=== PATIENT | female | born 1965 | race Caucasian/White ===

== ENCOUNTER 2019-06-14 14:48 | Inpatient (IN) ==
[2019-06-14] MEDS ORDERED: IOPAMIDOL 100 ML BOTTLE IV ONE (14:49)
[2019-06-14] MEDS ORDERED: IPRATROPIUM/ALBUTEROL 3 ML AMPUL.NEB NEB ONE (15:15)
[2019-06-14 15:33] LABS: Basophils # (Auto) 0.1 K/mcL (0.0-0.3); Basophils % (Auto) 0.7 % (0.0-2.0); Eosinophils # (Auto) 0.1 K/mcL (0.0-0.7); Eosinophils % (Auto) 1.2 % (0.0-7.0); Granulocytes % (Auto) 73.9 % (38.0-78.0); Hematocrit 39.1 % (36.0-48.0); Hemoglobin 12.8 g/dL (12.0-15.0); Lymphocytes # (Auto) 1.6 K/mcL (1.5-4.8); Lymphocytes % (Auto) 17.5 % (15.5-49.0); Mean Cell Volume 77.8 fL (80.0-100.0); Mean Corpuscular HGB Conc 32.8 g/dL (31.0-36.0); Mean Platelet Volume 7.7 fL (7.4-10.4); Monocytes # (Auto) 0.6 K/mcL (0.1-0.9); Monocytes % (Auto) 6.7 % (1.0-12.0); Platelet Count 461 K/mcL (140-440); RBC 5.02 M/mcL (4.00-5.20); Red Cell Distribution Width 16.4 % (11.5-14.5); WBC 8.9 K/mcL (4.5-11.0)
[2019-06-14 16:05] LABS: ALT/SGPT 9 U/l (0-40); AST/SGOT 12 U/l (0-37); Albumin 3.4 gm/dL (3.2-5.2); Albumin/Globulin Ratio 0.9 (1.0-2.3); Alkaline Phosphatase 124 U/L (39-117); Bilirubin,Total 0.2 mg/dL (0.0-1.0); Blood Urea Nitrogen 8 mg/dl (6-20); Calcium 9.3 mg/dl (8.6-10.4); Carbon Dioxide 30 mmol/L (22-30); Chloride 92 mmol/L (96-108); Glomerular Filtration Rate 116; Glucose 118 mg/dL (70-105); proBNP 207.6 pg/ml (0-125)
--- NOTE | 2019-06-14 16:29 | XRay Report ---
HISTORY: Short of breath FINDINGS: There is near complete opacification of the right thorax due to large pleural effusion and complete atelectasis of the right middle and lower lobe and partial right upper lobe atelectasis. Left lung is clear. Heart does not appear to be grossly enlarged. No Left-sided effusion is present. Comparison with the prior exam from 04/08/19 shows the right-sided effusion and atelectasis are new. IMPRESSION: Large right-sided pleural effusion with complete atelectasis of the right middle and right lower lobe Interpreted and Authenticated by: Castillo Gordillo 06/14/19
[2019-06-14 16:32] LABS: Appearance,Urine CLEAR; Bacteria,Urine MANY /hpf (0); Bilirubin,Urine NEG (NEG); Color,Urine YELLOW; Culture Indicated,Urine YES; Glucose,Urine (UA) NEGATIVE (NEG); Ketones,Urine 20 mg/dL (NEG); Leukocyte Esterase,Urine 75 /uL (NEG); Mucus,Urine FEW /hpf (0); Nitrate,Urine POS (NEG); Protein,Urine NEG (NEG); Urine Blood 0.2 mg/dL (<0.03); Urine RBC 2 /hpf (0-1); Urine Squamous Epithelial Cell 1 /hpf (0-4); Urine WBC 7 /hpf (0-4); Urobilinogen,Urine NEG (NEG)
--- NOTE | 2019-06-14 18:09 | Ultrasound Report ---
CLINICAL INFORMATION: Right-sided pleural effusion with dyspnea TECHNIQUE: The procedure and risks were explained and the patient consented. Large volume of pleural fluid was localized in the right thorax. The skin over the right side of the back was prepped with ChloraPrep and then anesthetized with 1% lidocaine. Using ultrasound guidance a multi-sidehole drainage catheter was inserted into the pleural space. 1 L of dark old bloody fluid was removed and sent to laboratory for analysis. There is still a moderate amount of residual fluid. The patient began coughing and the procedure was terminated. Coughing subsided and she tolerated the procedure well without complication. IMPRESSION: Successful right-sided thoracentesis removing 1 L of dark bloody fluid Interpreted and Authenticated by: Castillo Gordillo 06/14/19
--- NOTE | 2019-06-14 18:10 | XRay Report ---
HISTORY: Post right-sided thoracentesis FINDINGS: There is partial reexpansion of the right upper lobe following the preceding thoracentesis. In spite of removing 1 L of fluid, there is still a large amount of residual pleural fluid present causing complete atelectasis of the right middle and lower lobe. There is no pneumothorax or mediastinal shift. Left lung remains clear. IMPRESSION: No complication following right-sided thoracentesis Interpreted and Authenticated by: Castillo Gordillo 06/14/19
--- NOTE | 2019-06-14 18:34 | Emergency Department Note ---
SOB HPI - General Chief Complaint: Shortness of Breath/Dyspnea Stated Complaint: SOB Time Seen by Provider: 06/14/19 14:59 Source: patient Mode of arrival: wheelchair Limitations: no limitations - History of Present Illness 54-year-old female presents with increasing shortness of breath. States this is been going on over a month. They put her on oxygen and she is in a [facility] but she states she continues to get worse and feels more short of breath today than she has even over the last few weeks. No fever chills. No nausea, vomiting, or diarrhea. - Related Data Home Medications Medication Instructions Recorded Confirmed Aspirin [Lite Coat Aspirin] 325 mg PO DAILY 09/17/16 05/14/19 Acetaminophen 325 mg PO PRN PRN 04/25/19 05/14/19 Atorvastatin [Lipitor] 20 mg PO HS 04/25/19 05/14/19 Cadexomer Iodine [Iodosorb] 1 gm TOPICAL DAILY 04/25/19 05/14/19 daptomycin 350 mg intravenous 220 mg IV Q24H each 05/13/19 05/13/19 solution meropenem 500 mg intravenous 1 g IV Q8H 05/13/19 05/13/19 solution varenicline 0.5 mg tablet 0.5 mg PO BID 05/13/19 05/13/19 Previous Rx's Medication Instructions Recorded budesonide-formoterol HFA 80 2 puff INHALATION BID #10.2 g 06/23/18 mcg-4.5 mcg/actuation aerosol inhaler fluticasone propionate 50 1 spray INTRANASAL BID #16 g 09/02/18 mcg/actuation nasal spray,suspension lisinopril 20 mg tablet 20 mg PO QDAY #90 tab 10/19/18 mirabegron 25 mg tablet,extended 25 mg PO QDAY #30 tab 11/17/18 release 24 hr [employer] Knee Scooter #1 each 02/02/19 oxycodone 5 mg tablet 5 mg PO Q4H PRN #90 tab 04/27/19 duloxetine 30 mg capsule,delayed 30 mg PO QDAY #30 cap 05/11/19 release duloxetine 60 mg capsule,delayed 60 mg PO QDAY #30 cap 05/11/19 release pregabalin 200 mg capsule 200 mg PO TID #90 cap 05/12/19 D/C PICC line in L arm #1 ea 05/13/19 trazodone 50 mg tablet 50 mg PO QHS #60 tab 05/20/19 fentanyl 25 mcg/hr transdermal 1 patch TRANSDERMA Q72H #5 each 05/25/19 patch Allergies Allergy/AdvReac Type Severity Reaction Status Date / Time morphine AdvReac Mild Agitated Verified 06/14/19 14:52 Review of Systems All systems ED: reviewed and negative except as stated. Past Medical History - Past Medical History [facility] Narrative: Medical History (Last Reviewed 05/14/19 @ 10:23 by Orly Avalos LPN) Abnormal complete blood count (Chronic) Major depressive disorder, recurrent severe without psychotic features (Chronic) Overweight (BMI 25.0-29.9) (Chronic) Chronic nausea (Chronic) History of kidney stones (Chronic) Anxiety with depression (Chronic) Tobacco abuse (Chronic) PAD (peripheral artery disease) (Chronic ~2009) COPD (chronic obstructive pulmonary disease) (Chronic) Joint pain (Chronic) Insomnia (Chronic) Hyperlipidemia (Chronic) Hypertension, essential (Chronic) Arthritis (Chronic) Acute bacterial rhinosinusitis (Resolved) Atherosclerosis of extremity with gangrene (Resolved) Atherosclerosis of [place] artery of right leg with gangrene (Resolved) Chronic ulcer of great toe of right foot (Resolved) Daytime sleepiness (Resolved) Foot ulcer, right (Resolved) Osteomyelitis (Resolved) Skin ulcer of foot including toes (Resolved) Urinary tract infection (Resolved) Past Surgical History (Last Reviewed 05/14/19 @ 10:23 by Orly Avalos LPN) H/O angioplasty (Chronic) H/O colonoscopy (Chronic) H/O: hysterectomy (Chronic) History of amputation of hallux (Chronic 02/21/19) History of ankle surgery (Chronic) History of cataract surgery (Chronic) Hx of AKA (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 Absent: conjunctival injection ENT: Present: normal exam, normal oropharynx, mucous membranes moist, TM's normal bilaterally, normal external ear exam Chest: Present: symmetric chest wall rise Respiratory: Present: respiratory distress (mild tachypnea on arrival and mild labored breathing), other (dimished throughout) Cardiovascular: Present: regular rate, normal heart sounds Extremities: Present: other (left aka). Absent: normal inspection (Right axqaw-hvm-rljf amputation.) Neurological: Present: oriented X3 Psychiatric: Present: normal affect, normal mood Skin: Present: warm, dry, intact, normal color. Absent: rash, hives, cyanosis, diaphoresis Course Course Narrative: @[address] Khan who agrees to accept this patient Vital Signs Temperature 98.6 F 06/14/19 14:48 Pulse Rate 105 H 06/14/19 14:48 Respiratory Rate 23 H 06/14/19 14:48 Blood Pressure 165/78 06/14/19 14:48 Pulse Oximetry (%) 91 06/14/19 14:48 Temperature 98.6 F 06/14/19 14:48 Pulse Rate 103 H 06/14/19 19:46 Respiratory Rate 20 06/14/19 18:46 Blood Pressure 146/81 06/14/19 19:46 Pulse Oximetry (%) 90 06/14/19 19:46 Shortness of Breath/Dyspnea - Lab Data Result diagrams: 06/14/19 15:07 06/14/19 15:07 Lab Results 06/14/19 06/14/19 06/14/19 Range/Units 15:00 15:07 15:07 WBC 8.9 (4.5-11.0) K/mcL RBC 5.02 (4.00-5.20) M/mcL Hgb 12.8 (12.0-15.0) g/dL Hct 39.1 (36.0-48.0) % MCV 77.8 L (80.0-100.0) fL MCH 25.5 L (26.0-34.0) pg MCHC 32.8 (31.0-36.0) g/dL RDW 16.4 H (11.5-14.5) % Plt Count 461 H (140-440) K/mcL MPV 7.7 (7.4-10.4) fL Gran % 73.9 (38.0-78.0) % Lymph % (Auto) 17.5 (15.5-49.0) % [place] % (Auto) 6.7 (1.0-12.0) % Eos % (Auto) 1.2 (0.0-7.0) % Baso % (Auto) 0.7 (0.0-2.0) % Gran # 6.6 (1.8-8.0) K/mcL Lymph # (Auto) 1.6 (1.5-4.8) K/mcL [place] # (Auto) 0.6 (0.1-0.9) K/mcL Eos # (Auto) 0.1 (0.0-0.7) K/mcL Baso # (Auto) 0.1 (0.0-0.3) K/mcL VBG Lactic Acid (0.5-2.0) mmol/L Sodium 134 (133-145) mmol/L Potassium 4.0 (3.3-5.1) mmol/L Chloride 92 L (96-108) mmol/L Carbon Dioxide 30 (22-30) mmol/L Anion Gap 12.0 (8-16) BUN 8 (6-20) mg/dl Creatinine 0.4 L (0.6-1.1) mg/dl GFR Calculation 116 Glucose 118 H (70-105) mg/dL Calcium 9.3 (8.6-10.4) mg/dl Total Bilirubin 0.2 (0.0-1.0) mg/dL AST 12 (0-37) U/l ALT 9 (0-40) U/l Alkaline Phosphatase 124 H (39-117) U/L Troponin T < 0.01 (0-0.03) ng/ml NT-Pro-B Natriuret Pep 207.6 H (0-125) pg/ml Total Protein 7.4 (5.9-8.4) gm/dL Albumin 3.4 (3.2-5.2) gm/dL Globulin 4.0 H (2.2-3.7) gm/dL Albumin/Globulin Ratio 0.9 L (1.0-2.3) Urine Color Urine Appearance Urine pH (5.0-9.0) Ur Specific [place] (1.000-1.035) Urine Protein (NEG) mg/dL Urine Glucose (UA) (NEG) mg/dL Urine Ketones (NEG) mg/dL Urine Occult Blood (<0.03) mg/dL Urine Nitrate (NEG) Urine Bilirubin (NEG) mg/dL Urine Urobilinogen (NEG) mg/dL Ur Leukocyte Esterase (NEG) /uL Urine RBC (0-1) /hpf Urine WBC (0-4) /hpf Ur Squamous Epith Cells (0-4) /hpf Urine Bacteria (0) /hpf Urine Mucus (0) /hpf Ur Culture Indicated? 06/14/19 06/14/19 Range/Units 15:07 15:35 WBC (4.5-11.0) K/mcL RBC (4.00-5.20) M/mcL Hgb (12.0-15.0) g/dL Hct (36.0-48.0) % MCV (80.0-100.0) fL MCH (26.0-34.0) pg MCHC (31.0-36.0) g/dL RDW (11.5-14.5) % Plt Count (140-440) K/mcL MPV (7.4-10.4) fL Gran % (38.0-78.0) % Lymph % (Auto) (15.5-49.0) % [place] % (Auto) (1.0-12.0) % Eos % (Auto) (0.0-7.0) % Baso % (Auto) (0.0-2.0) % Gran # (1.8-8.0) K/mcL Lymph # (Auto) (1.5-4.8) K/mcL [place] # (Auto) (0.1-0.9) K/mcL Eos # (Auto) (0.0-0.7) K/mcL Baso # (Auto) (0.0-0.3) K/mcL VBG Lactic Acid 1.0 (0.5-2.0) mmol/L Sodium (133-145) mmol/L Potassium (3.3-5.1) mmol/L Chloride (96-108) mmol/L Carbon Dioxide (22-30) mmol/L Anion Gap (8-16) BUN (6-20) mg/dl Creatinine (0.6-1.1) mg/dl GFR Calculation Glucose (70-105) mg/dL Calcium (8.6-10.4) mg/dl Total Bilirubin (0.0-1.0) mg/dL AST (0-37) U/l ALT (0-40) U/l Alkaline Phosphatase (39-117) U/L Troponin T (0-0.03) ng/ml NT-Pro-B Natriuret Pep (0-125) pg/ml Total Protein (5.9-8.4) gm/dL Albumin (3.2-5.2) gm/dL Globulin (2.2-3.7) gm/dL Albumin/Globulin Ratio (1.0-2.3) Urine Color Yellow Urine Appearance Clear Urine pH 7.0 (5.0-9.0) Ur Specific [place] 1.010 (1.000-1.035) Urine Protein Neg (NEG) mg/dL Urine Glucose (UA) Negative (NEG) mg/dL Urine Ketones 20 A (NEG) mg/dL Urine Occult Blood 0.2 A (<0.03) mg/dL Urine Nitrate Pos A (NEG) Urine Bilirubin Neg (NEG) mg/dL Urine Urobilinogen Neg (NEG) mg/dL Ur Leukocyte Esterase 75 A (NEG) /uL Urine RBC 2 H (0-1) /hpf Urine WBC 7 H (0-4) /hpf Ur Squamous Epith Cells 1 (0-4) /hpf Urine Bacteria Many A (0) /hpf Urine Mucus Few (0) /hpf Ur Culture Indicated? Yes Disposition Pt seen by HISTORY PROFESSOR/PA only: Yes Clinical Impression: UTI (urinary tract infection), Dyspnea, Status post thoracentesis, Hypoxia Disposition: Xfer As Inpt ([facility]) Condition: Fair Referrals: Vickie Marroquin ARNP [Primary Care Provider] - Time of Disposition: 19:55
--- NOTE | 2019-06-14 21:22 | Internal Med History&Physical ---
Medical - H&P: HPI Patient information: Note initiated : 06/14/19 at 9:20 pm Service Date, if different from initiated Date: [] Patient: Anai Newton 54 y/o F admitted on for Shortness of breath. Chief Complaint: [] Chief complaint: Shortness of breath History of present illness: 54-year-old female with a history of essential hypertension, severe peripheral vascular disease status post AKA was brought to the ER because of progressively worsening shortness of breath for the last 4 weeks. Patient has a history of COPD and continued smoking she gets intermittent shortness of breath but for the last 4 weeks which has been worse even with the minimal activity she was dyspneic. Patient denied any fever no chills no palpitations no leg edema no history says history of any heart failure. No history for history of any active infection or pneumonia. She was evaluated in the ER and chest x-ray showed evidence of large pleural effusion on the right side and underwent pleural tapping and fluid studies sent. Discussed with the radiologist and they were able to remove 1 L of hemorrhagic pleural fluid. She underwent further CT of the chest with contrast which is showing pleural thickening and suspicious 1.2 cm apical mass. History of active smoking at least 1 pack/day for the last 40 years. Discussed with the patient about the potential possibility of this could be a malignancy which she want to be diagnosed and need further information to decide. Patient verified the CODE STATUS to be DNR - Constitutional Constitutional: Present: anorexia, fatigue, lethargy. Absent: chills, daytime sleepiness, excessive sweating, fever(s), frequent falls, headache(s), weight loss - EENT Eyes: Absent: irritation, itchy eyes, loss of peripheral vision, loss of vision - Cardiovascular Cardiovascular: Present: claudication, dyspnea, dyspnea on exertion. Absent: chest pain, diaphoresis, edema, irregular heart rhythm, radiating jaw, neck or arm pain, leg edema, palpatations, paroxysmal nocturnal dyspnea, pedal edema - Respiratory Respiratory: Present: cough, dyspnea on exertion, wheezing, pain on inspirtation, chest congestion, pain with cough. Absent: hemoptysis - Gastrointestinal Gastrointestinal: Absent: abdominal pain, hematemesis, hematochezia, loose stools, nausea, vomiting - Genitourinary Genitourinary: Absent: abnormal vaginal bleeding, hematuria - Musculoskeletal Musculoskeletal: Present: arthralgias, back pain. Absent: abnormal gait, atrophy - Neurological Neurological: Absent: abnormal gait, abnormal hearing, abnormal movements, abnormal speech, confusion, dizziness, focal weakness, frequent falls, lack of coordination - Psychiatric Psychiatric: Present: anxiety. Absent: behavioral changes - Endocrine Endocrine: Present: fatigue. 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) Overweight (BMI 25.0-29.9) (Chronic) Chronic nausea (Chronic) History of kidney stones (Chronic) Anxiety with depression (Chronic) Tobacco abuse (Chronic) PAD (peripheral artery disease) (Chronic ~2009) COPD (chronic obstructive pulmonary disease) (Chronic) Joint pain (Chronic) Insomnia (Chronic) Hyperlipidemia (Chronic) Hypertension, essential (Chronic) Arthritis (Chronic) Acute bacterial rhinosinusitis (Resolved) Atherosclerosis of extremity with gangrene (Resolved) Atherosclerosis of [place] artery of right leg with gangrene (Resolved) Chronic ulcer of great toe of right foot (Resolved) Daytime sleepiness (Resolved) Foot ulcer, right (Resolved) Osteomyelitis (Resolved) Skin ulcer of foot including toes (Resolved) Urinary tract infection (Resolved) Surgical history: Past Surgical History (Last Reviewed 05/14/19 @ 10:23 by Orly Avalos LPN) H/O angioplasty (Chronic) H/O colonoscopy (Chronic) H/O: hysterectomy (Chronic) History of amputation of hallux (Chronic 02/21/19) History of ankle surgery (Chronic) History of cataract surgery (Chronic) Hx of AKA (above knee amputation) (Chronic 04/13/19) Social history: Social History (Last Updated 05/14/19 @ 11:37 by Rosalinda Nielsen DO) History of continued smoking No alcoholism No other recreational drug use Medical - H&P: Meds Home Medications Medication Instructions Recorded Confirmed Type Aspirin [Lite Coat Aspirin] 325 mg PO DAILY 09/17/16 05/14/19 History budesonide-formoterol HFA 80 2 puff INHALATION BID #10.2 g 06/23/18 05/14/19 Rx mcg-4.5 mcg/actuation aerosol inhaler fluticasone propionate 50 1 spray INTRANASAL BID #16 g 09/02/18 05/14/19 Rx mcg/actuation nasal spray,suspension lisinopril 20 mg tablet 20 mg PO QDAY #90 tab 10/19/18 05/14/19 Rx mirabegron 25 mg tablet,extended 25 mg PO QDAY #30 tab 11/17/18 05/14/19 Rx release 24 hr [employer] Knee Scooter #1 each 02/02/19 05/14/19 Rx Acetaminophen 325 mg PO PRN PRN 04/25/19 05/14/19 History Atorvastatin [Lipitor] 20 mg PO HS 04/25/19 05/14/19 History Cadexomer Iodine [Iodosorb] 1 gm TOPICAL DAILY 04/25/19 05/14/19 History oxycodone 5 mg tablet 5 mg PO Q4H PRN #90 tab 04/27/19 05/14/19 Rx duloxetine 30 mg capsule,delayed 30 mg PO QDAY #30 cap 05/11/19 05/14/19 Rx release duloxetine 60 mg capsule,delayed 60 mg PO QDAY #30 cap 05/11/19 05/14/19 Rx release pregabalin 200 mg capsule 200 mg PO TID #90 cap 05/12/19 05/14/19 Rx D/C PICC line in L arm #1 ea 05/13/19 05/14/19 Rx daptomycin 350 mg intravenous 220 mg IV Q24H each 05/13/19 05/13/19 History solution meropenem 500 mg intravenous 1 g IV Q8H 05/13/19 05/13/19 History solution varenicline 0.5 mg tablet 0.5 mg PO BID 05/13/19 05/13/19 History trazodone 50 mg tablet 50 mg PO QHS #60 tab 05/20/19 Rx fentanyl 25 mcg/hr transdermal 1 patch TRANSDERMA Q72H #5 each 05/25/19 Rx patch Allergies Allergy/AdvReac Type Severity Reaction Status Date / Time morphine AdvReac Mild Agitated Verified 06/14/19 14:52 Medical - H&P: Exam - Constitutional Vitals: Temp Pulse Resp BP Pulse Ox 98.6 F 103 H 18 116/80 94 06/14/19 14:48 06/14/19 21:16 06/14/19 21:16 06/14/19 21:16 06/14/19 21:16 General appearance: disheveled, moderate distress - Head Head exam: Present: atraumatic, normal inspection - Expanded Head Exam Head exam: Absent: abrasion, contusion, hematoma - Eye Eye exam: Present: conjunctival injection, normal appearance Pupils: Present: PERRL - ENT ENT exam: Present: mucous membranes dry, normal exam - Expanded ENT Exam Ear exam: Absent: auricular hematoma, auricular trauma, external canal tenderness Nose & sinuses exam: Present: nasal mucusa, septum and turbinates normal Mouth exam: Present: normal external inspection. Absent: drooling, laceration, muffled voice - Neck Neck exam: Present: full ROM. Absent: meningismus, tenderness, thyromegaly - Expanded Neck Exam Neck exam: Present: carotid bruit. Absent: anterior neck swelling - Respiratory Respiratory exam: Present: accessory muscle use, decreased breath sounds, respiratory distress, wheezes. Absent: rales - Cardiovascular Cardiovascular exam: Present: tachycardia. Absent: bradycardia, clicks, deborah stolic murmur, irregular rhythm, rubs, +S3 - GI/Abdominal GI/Abdominal exam: Present: normal bowel sounds, distended. Absent: guarding - Expanded GI/Abdominal Exam GI/Abdominal exam: Absent: ascites - Extremities Exam Extremities exam: Absent: calf tenderness, full ROM, joint swelling - Back Exam Back exam: Absent: CVA tenderness (L), CVA tenderness (R) - Neurological Exam Neurological exam: Present: alert, oriented X3. Absent: abnormal gait, motor sensory deficit - Psychiatric Psychiatric exam: Present: anxious, depressed. Absent: agitated - Skin Skin exam: Absent: abrasion, cyanosis, diaphoretic Medical - H&P: Reslt - Labs CBC & Chem 7: 06/14/19 15:07 06/14/19 15:07 Labs: Short CBC 06/14/19 Range/Units 15:07 WBC 8.9 (4.5-11.0) K/mcL Hgb 12.8 (12.0-15.0) g/dL Hct 39.1 (36.0-48.0) % Plt Count 461 H (140-440) K/mcL BMP 06/14/19 15:07 Sodium 134 Potassium 4.0 Chloride 92 L Carbon Dioxide 30 BUN 8 Creatinine 0.4 L Glucose 118 H Calcium 9.3 Cardiac Enzymes 06/14/19 Range/Units 15:00 Troponin T < 0.01 (0-0.03) ng/ml Liver Function 06/14/19 Range/Units 15:07 Total Bilirubin 0.2 (0.0-1.0) mg/dL AST 12 (0-37) U/l ALT 9 (0-40) U/l Alkaline Phosphatase 124 H (39-117) U/L Albumin 3.4 (3.2-5.2) gm/dL Urine 06/14/19 Range/Units 15:35 Urine Color Yellow Urine Appearance Clear Urine pH 7.0 (5.0-9.0) Ur Specific [place] 1.010 (1.000-1.035) Urine Protein Neg (NEG) mg/dL Urine Glucose (UA) Negative (NEG) mg/dL Medical - H&P: A/P - Narrative A/P Narrative: Acute hypoxic respiratory failure Hemorrhagic pleural effusion -newly diagnosed History of shortness of breath and hypoxia-3 to 4 weeks History of COPD and continued smoking No history suggestive of heart failure No history of active COPD exacerbation Plan 1 L hemorrhagic pleural effusion was removed by radiology and planning to do further tomorrow CT scan of the chest showing pleural thickening and 1.1 cm Mass We will try to obtain CT abdomen pelvis and CT head to look for any mass lesions DuoNeb's every 4 hours Continue her home inhaler Pulse oximetry and target oxygenation 89-92 History of peripheral vascular disease status post BKA We will hold the aspirin as she is having hemorrhagic pleural effusion and planning for further tapping She might also need biopsy Continue home medications COPD-not in exacerbation Continue duo nebs Continue home inhalers Essential hypertension Continue home medications-lisinopril Anxiety and major depression Lorazepam as needed for anxiety episodes DVT prophylaxis-SCDs and subcu Lovenox CODE STATUS-DNR, verified with the patient
[2019-06-14] MEDS ORDERED: ONDANSETRON 4 MG/2 ML VIAL IV PRN (21:23)
[2019-06-14] MEDS ORDERED: oxyCODONE HCL 5 MG TABLET PO ONE (22:45)
[2019-06-14] MEDS: ALBUTEROL SULFATE 2.5 MG/3 ML NEBULIZER NEB SCH (22:46)
[2019-06-14] MEDS: DOCUSATE SODIUM 100 MG CAPSULE PO SCH (22:49)
[2019-06-14] MEDS: 0.9 % SODIUM CHLORIDE 10 ML SYRINGE IV SCH (22:49)
[2019-06-15] MEDS: ALBUTEROL SULFATE 2.5 MG/3 ML NEBULIZER NEB SCH ×6 (02:55→23:13)
[2019-06-15] MEDS: oxyCODONE HCL 5 MG TABLET PO PRN ×5 (02:56→23:34)
[2019-06-15] MEDS ORDERED: oxyCODONE HCL 5 MG TABLET PO ONE (02:56)
[2019-06-15 04:59] LABS: Hematocrit 40.3 % (36.0-48.0); Hemoglobin 12.9 g/dL (12.0-15.0); Mean Cell Volume 78.6 fL (80.0-100.0); Mean Platelet Volume 8.1 fL (7.4-10.4); Platelet Count 443 K/mcL (140-440); RBC 5.13 M/mcL (4.00-5.20); Red Cell Distribution Width 16.4 % (11.5-14.5); WBC 9.7 K/mcL (4.5-11.0)
[2019-06-15 05:39] LABS: ALT/SGPT 7 U/l (0-40); AST/SGOT 12 U/l (0-37); Albumin 3.3 gm/dL (3.2-5.2); Albumin/Globulin Ratio 0.9 (1.0-2.3); Alkaline Phosphatase 114 U/L (39-117); Bilirubin,Total 0.2 mg/dL (0.0-1.0); Blood Urea Nitrogen 7 mg/dl (6-20); Calcium 9.2 mg/dl (8.6-10.4); Carbon Dioxide 31 mmol/L (22-30); Chloride 93 mmol/L (96-108); Globulin 3.5 gm/dL (2.2-3.7); Glomerular Filtration Rate 116; Glucose 107 mg/dL (70-105)
[2019-06-15] MEDS: 0.9 % SODIUM CHLORIDE 10 ML SYRINGE IV SCH ×3 (05:42→21:56)
[2019-06-15] MEDS: ACETAMINOPHEN 325 MG TABLET PO PRN ×2 (06:39→15:30)
--- NOTE | 2019-06-15 08:01 | Cat Scan Report ---
History: Right-sided pleural effusion, atelectasis, smoker TECHNIQUE: The chest was imaged following intravenous nonionic contrast scanning from the thoracic inlet through the adrenals. Sagittal, coronal and axial MIPS images were obtained. The radiation exposure was limited using dose reduction technology. FINDINGS: The pulmonary arteries are normal without evidence of pulmonary emboli. Patient has a large right-sided pleural effusion. There is complete atelectasis of the right middle and lower lobes. Mild atelectasis is present in the posterior segment right upper lobe. At the right apex there is a spiculated 1.3 cm mass. In the left lung there is a small patchy alveolar infiltrate anteriorly and medially in the superior segment of lingula. Subtle increased interstitial lung markings are present throughout the left lung. No mass is seen on the left side. There is no left-sided pleural effusion. The heart is normal in size and contour. No pericardial effusion is present. Small amount plaque is present in the proximal left anterior descending coronary and in the aortic arch. There is a nodular rind of pleural thickening surrounding the right lung. This measures up to 11 mm in thickness. Enlarged lymph nodes are present in the mediastinum. The largest is in the pretracheal retrocaval space and measures 1.3 x 2 cm. No adenopathy is present in the left hilum. No adrenal metastasis are present and there are no obvious liver lesions. Bone windows show no lytic or blastic bone metastasis. IMPRESSION: 1.3 cm mass in the right apex. This may be a primary lung cancer such as a small cell lung cancer Nodular pleural thickening around the right lung. These are probably pleural metastasis Mediastinal adenopathy Large right-sided pleural effusion causing complete atelectasis of the right middle and right lower lobes Tiffany Casillas was called with the results Interpreted and Authenticated by: Castillo Gordillo 06/15/19
[2019-06-15] MEDS ORDERED: ENOXAPARIN 40 MG/0.4 ML SYRINGE SQ SCH ×2 (09:00→21:00)
[2019-06-15] MEDS: DOCUSATE SODIUM 100 MG CAPSULE PO SCH ×2 (09:22→21:55)
[2019-06-15 09:36] LABS: Anisocytosis 1+ (NONE SEEN); Eosinophils % (Manual) 1 % (0-7); Hypochromasia 1+ (NONE SEEN); Lymphocytes % 19 % (15-49); Microcytosis 1+ (NONE SEEN); Monocytes % (Manual) 6 % (1-12); Platelet Estimate INCREASED (NORMAL); RBC Morphology ABNORM (NORMAL); Reactive Lymphocytes 1 % (0-2); Segmented Neutrophils % 73 % (38-78)
[2019-06-15 09:56] LABS: POC INR 1.2 (0.9-1.2); POC Pro Time 13.8 sec (11.9-14.5)
[2019-06-15] MEDS ORDERED: MIDAZOLAM 2 MG/2 ML VIAL IV PRN ×2 (11:30→17:28)
--- NOTE | 2019-06-15 11:39 | Cat Scan Report ---
History: 1.3 cm right apical mass, large right-sided pleural effusion, nodular pleural thickening TECHNIQUE: Initially we tried to localize the nodular pleural thickening using ultrasound. We are unable to clearly identify the abnormal pleura. Ultrasound. It was therefore decided to perform the biopsy with CT guidance. The chest was imaged from the apex to the diaphragm. The 1.3 cm spiculated mass was localized posteriorly in the right upper thorax. This is more clearly identifiable than the pleural thickening. Was there for determining to biopsy the lung nodule as opposed to the abnormal pleura. Patient still has a large right-sided pleural effusion with complete atelectasis of the right middle and lower lobes. The skin over the patient's right upper chest wall was prepped with ChloraPrep thin anesthetized with 1% lidocaine. She received Versed 1 mg intravenously. Vital signs were monitored and remained stable. Using CT guidance a coaxial 17/18 gauge Biopence needle was inserted into the mass. Three core samples were obtained and sent for histology. Images obtained following the biopsy show a trace pneumothorax over the apex of the lung. She was asymptomatic. An ultrasound-guided thoracentesis will be performed after the lung biopsy. IMPRESSION: Successful CT-guided biopsy of a 1.3 cm mass in the right upper lobe Interpreted and Authenticated by: Castillo Gordillo 06/15/19
--- NOTE | 2019-06-15 11:45 | XRay Report ---
HISTORY: Post right-sided thoracentesis and post biopsy of a right upper lobe mass FINDINGS: No pneumothorax is present. There is a small to moderate size residual right-sided pleural effusion following the preceding thoracentesis. There has been partial reaeration of the right middle and lower lobes. There are prominent increased interstitial lung markings bilaterally. The margins of the pulmonary vessels are indistinct. The heart does not appear to be enlarged but the right heart border is obscured by the consolidation in the right lower thorax. There is a vague 1.3 cm mass in the right apex. This is the lesion which had been biopsied. IMPRESSION: No pneumothorax Improving aeration in the right lung Diffuse interstitial lung disease bilaterally. This could be due to a nonspecific inflammatory reaction or edema. Residual right-sided pleural effusion Right upper lobe mass Interpreted and Authenticated by: Castillo Gordillo 06/15/19
--- NOTE | 2019-06-15 12:09 | Ultrasound Report ---
CLINICAL INFORMATION: Right-sided pleural effusion and dyspnea TECHNIQUE: The procedure and risks were explained and the patient consented. A large volume of pleural fluid was localized in the right thorax. The skin over the right lower thorax was prepped with ChloraPrep and then anesthetized with 1% lidocaine. Using ultrasound guidance a multi sidehole drainage catheter was inserted into the pleural space. 1.3 L of dark bloody fluid was removed and sent to laboratory. There is still a significant amount residual pleural fluid but the patient began coughing and it was decided to terminate the procedure. Her coughing subsided and she tolerated the procedure well without complication. IMPRESSION: Successful right-sided thoracentesis removing 1.3 L fluid Interpreted and Authenticated by: Castillo Gordillo 06/15/19
--- NOTE | 2019-06-15 12:53 | Internal Med Progress Note ---
Medical - PN: Subj Patient information: Note initiated : 06/15/19 at 12:51 pm Service Date, if different from initiated Date: [] Patient: Anai Newton 54 y/o F admitted on 06/14/19 for Shortness of breath. Chief Complaint: [] Interval history: 54-year-old female admitted with a progressively worsening shortness of breath and found to have large right-sided pleural effusion which was hemorrhagic upon tapping in the ER. She was admitted for suspected malignant pleural effusion and CT chest showing 1.2 cm apical mass and pleural thickening. Patient underwent thoracentesis therapeutic and diagnostic in the ER on the day of admission. But she continued having symptoms 06/15 -she continued having shortness of breath and chest x-ray showing large pleural effusion discussed with radiology and underwent ultrasound-guided thoracentesis and by CT-guided biopsy of the right apical mass. They could not identify the pleural thickening with ultrasound. Pathology and cytology pending. Pertinent ROS: General appearance-appears to be anxious, tired Respiratory-shortness of breath even with minimal activities but feeling better compared to yesterday CVS-no chest pain except when she take deep breath, chest pain with coughing, Abdominal-loss of appetite, no abdominal pain or distention Urinary-increasing frequency Neurology-denied any focal motor or sensory deficit - Constitutional Vitals: Vital Signs Temp Pulse Resp BP Pulse Ox 97.8 F 79 20 127/70 100 06/15/19 12:16 06/15/19 12:16 06/15/19 12:16 06/15/19 12:16 06/15/19 12:16 Period Temp Pulse Resp BP Sys/Bridges Pulse Ox Last 24 Hr 97.4 F-98.6 F 74-112 13-42 107-165/51-128 85-100 Intake and Output 06/14/19 06/15/19 06/15/19 21:59 05:59 13:59 Intake Total 100 Output Total 100 325 Balance -100 -225 Weight 156 lb 4.8 oz Intake & Output: Intake & Output 06/14/19 06/15/19 06/15/19 21:59 05:59 13:59 Intake Total 100 Output Total 100 325 Balance -100 -225 Weight 156 lb 4.8 oz Intake: Oral 100 Output: Void Amount 100 325 General appearance: cooperative, mild distress - Head Head exam: Present: atraumatic, normal inspection - Eye Eye exam: Present: normal appearance. Absent: conjunctival injection Pupils: Present: PERRL - ENT ENT exam: Present: normal exam, normal oropharynx - Neck Neck exam: Present: normal inspection. Absent: lymphadenopathy - Respiratory Respiratory exam: Present: decreased breath sounds (Absent breath sounds on right side), respiratory distress, wheezes. Absent: rhonchi - Cardiovascular Cardiovascular exam: Present: normal rate and rhythm. Absent: bradycardia, irregular rhythm, JVD, +S3, tachycardia - GI/Abdominal GI/Abdominal exam: Present: soft, distended. Absent: firm, guarding - Back Exam Back exam: Absent: CVA tenderness (L), CVA tenderness (R) - Psychiatric Psychiatric exam: Present: anxious, depressed. Absent: agitated, flat affect - Skin Skin exam: Absent: cyanosis, diaphoretic, erythema Medical - PN: Obj Da - Labs CBC & Chem 7: 06/15/19 03:45 06/15/19 03:45 Labs: Abnormal Lab Results 06/15/19 06/15/19 06/14/19 03:45 03:45 15:35 MCV 78.6 L MCH 25.1 L RDW 16.4 H Plt Count 443 H RBC Morphology Abnorm A Hypochromasia 1+ A Anisocytosis 1+ A Microcytosis 1+ A Chloride 93 L Carbon Dioxide 31 H Creatinine 0.4 L Glucose 107 H Alkaline Phosphatase NT-Pro-B Natriuret Pep Globulin Albumin/Globulin Ratio 0.9 L Urine Ketones 20 A Urine Occult Blood 0.2 A Urine Nitrate Pos A Ur Leukocyte Esterase 75 A Urine RBC 2 H Urine WBC 7 H Urine Bacteria Many A 06/14/19 06/14/19 15:07 15:07 MCV 77.8 L MCH 25.5 L RDW 16.4 H Plt Count 461 H RBC Morphology Hypochromasia Anisocytosis Microcytosis Chloride 92 L Carbon Dioxide Creatinine 0.4 L Glucose 118 H Alkaline Phosphatase 124 H NT-Pro-B Natriuret Pep 207.6 H Globulin 4.0 H Albumin/Globulin Ratio 0.9 L Urine Ketones Urine Occult Blood Urine Nitrate Ur Leukocyte Esterase Urine RBC Urine WBC Urine Bacteria Meds: Medications Acetaminophen (Tylenol) 650 mg PO Q4-6HP PRN; Protocol PRN Reason: PAIN/FEVER > 101 Last Admin: 06/15/19 06:39 Dose: 650 mg Documented by: Albuterol Sulfate (Ventolin) 2.5 mg NEB Q4HRT [facility] Last Admin: 06/15/19 11:18 Dose: Not Given Documented by: Docusate Sodium (Colace) 100 mg PO BID [facility] Last Admin: 06/15/19 09:22 Dose: 100 mg Documented by: Enoxaparin Sodium (Lovenox) 40 mg SQ DAILY [facility] Midazolam HCl (Versed) 0 mg IV PRN PRN PRN Reason: conscious sedation Last Admin: 06/15/19 10:47 Dose: 1 mg Documented by: Ondansetron HCl (Zofran) 4 mg IV Q4-6HP PRN; Protocol PRN Reason: Nausea And Vomiting Last Admin: 06/15/19 05:42 Dose: 4 mg Documented by: Oxycodone HCl (Roxicodone) 5 mg PO Q4HP PRN PRN Reason: PAIN LEVEL 3-6 Last Admin: 06/15/19 06:40 Dose: 5 mg Documented by: Sodium Chloride (Saline Flush) 10 ml IV Q8 [facility] Last Admin: 06/15/19 05:42 Dose: 10 ml Documented by: Medical - PN: A/P - Time Spent With Patient Total time spent is greater than 50% in coordination of care (as documented) at patient's floor/unit and/or counseling patient: - Narrative A/P Narrative: Acute hypoxic respiratory failure Hemorrhagic pleural effusion -newly diagnosed History of shortness of breath and hypoxia-3 to 4 weeks History of COPD and continued smoking No history suggestive of heart failure No history of active COPD exacerbation Plan 1 L hemorrhagic pleural effusion was removed in the ER and removed 1.[address]-guided biopsy of the 1.2 cm mass in the right apex and pending biopsy and cytology Planning to obtain CT abdomen pelvis and CT head tomorrow DuoNeb's every 4 hours Continue her home inhaler Pulse oximetry and target oxygenation 89-92 Probable UTI She was complaining of increasing frequency and urine analysis was suspicious for UTI Started on ceftriaxone 2 g daily Pending urine culture History of peripheral vascular disease status post BKA We will hold the aspirin as she is having hemorrhagic pleural effusion and planning for further tapping She might also need biopsy Continue home medications COPD-not in exacerbation Continue duo nebs Continue home inhalers Chronic pain She has a fentanyl patch 25 mcg She is also getting oxycodone every 4 over 5 mg which she has been taking at home We held the 10 mg oxycodone with a new respiratory failure Essential hypertension Continue home medications-lisinopril Anxiety and major depression Lorazepam as needed for anxiety episodes DVT prophylaxis-SCDs and subcu Lovenox CODE STATUS-DNR, verified with the patient Medical - PN: Qual - Stroke Symptom Onset Unknown: No - VTE Deep Vein Thrombosis/Pulmonary Embolism Present on Admission: No
[2019-06-15] MEDS ORDERED: cefTRIAXone 2 GM in DEXTROSE 5% IN WATER 50 ML IV SCH (13:00)
[2019-06-15] MEDS ORDERED: ACETAMINOPHEN 325 MG TABLET PO PRN (17:28)
[2019-06-15] MEDS ORDERED: ONDANSETRON 4 MG/2 ML VIAL IV PRN (17:28)
[2019-06-15] MEDS ORDERED: oxyCODONE HCL 5 MG TABLET PO PRN (17:28)
[2019-06-15] MEDS: ENOXAPARIN 40 MG/0.4 ML SYRINGE SQ SCH (21:55)
[2019-06-16] MEDS: ALBUTEROL SULFATE 2.5 MG/3 ML NEBULIZER NEB SCH ×2 (03:50→06:58)
[2019-06-16] MEDS: oxyCODONE HCL 5 MG TABLET PO PRN ×3 (03:50→11:58)
[2019-06-16 04:58] LABS: Hematocrit 41.7 % (36.0-48.0); Hemoglobin 13.3 g/dL (12.0-15.0); Mean Cell Volume 78.4 fL (80.0-100.0); Mean Platelet Volume 7.8 fL (7.4-10.4); Platelet Count 481 K/mcL (140-440); RBC 5.32 M/mcL (4.00-5.20); Red Cell Distribution Width 16.7 % (11.5-14.5); WBC 10.2 K/mcL (4.5-11.0)
[2019-06-16 05:28] LABS: ALT/SGPT 8 U/l (0-40); AST/SGOT 12 U/l (0-37); Albumin/Globulin Ratio 0.8 (1.0-2.3); Alkaline Phosphatase 102 U/L (39-117); Bilirubin,Total 0.2 mg/dL (0.0-1.0); Blood Urea Nitrogen 7 mg/dl (6-20); Calcium 8.9 mg/dl (8.6-10.4); Carbon Dioxide 30 mmol/L (22-30); Chloride 95 mmol/L (96-108); Globulin 3.6 gm/dL (2.2-3.7); Glomerular Filtration Rate 116; Glucose 112 mg/dL (70-105)
[2019-06-16] MEDS: 0.9 % SODIUM CHLORIDE 10 ML SYRINGE IV SCH (05:42)
[2019-06-16 07:28] LABS: Anisocytosis 1+ (NONE SEEN); Eosinophils % (Manual) 3 % (0-7); Hypochromasia 1+ (NONE SEEN); Lymphocytes % 12 % (15-49); Microcytosis 1+ (NONE SEEN); Monocytes % (Manual) 6 % (1-12); Platelet Estimate INCREASED (NORMAL); Polychromasia 1+ (NONE SEEN); RBC Morphology ABNORM (NORMAL); Reactive Lymphocytes 1 % (0-2); Segmented Neutrophils % 78 % (38-78)
[2019-06-16] MEDS ORDERED: cefTRIAXone 2 GM in DEXTROSE 5% IN WATER 50 ML IV SCH (09:00)
[2019-06-16] MEDS: DOCUSATE SODIUM 100 MG CAPSULE PO SCH (09:36)
[2019-06-16] MEDS: ENOXAPARIN 40 MG/0.4 ML SYRINGE SQ SCH (09:36)
[2019-06-16] MEDS ORDERED: IOPAMIDOL 100 ML BOTTLE IV ONE (11:54)
--- NOTE | 2019-06-16 11:55 | Cat Scan Report ---
History: Lung tumor with metastatic workup TECHNIQUE: The brain was imaged before and after intravenous contrast. Radiation exposure was limited using dose reduction technology. FINDINGS: The brain appears normal without evidence of a mass, hemorrhage, infarct, edema or enhancing lesion. The ventricles and cisterns are normal. Bone windows show no skull metastasis. There is opacification of many of the ethmoid air cells on the left side due to sinusitis. IMPRESSION: Normal brain Left ethmoid sinusitis Interpreted and Authenticated by: Castillo Gordillo 06/16/19
--- NOTE | 2019-06-16 12:06 | Cat Scan Report ---
History: Malignant pleural effusion, staging lung cancer TECHNIQUE: The abdomen and pelvis were imaged following oral and intravenous contrast scanning from the diaphragm to the symphysis pubis. Sagittal and coronal reformats were created. Radiation exposure was limited using dose reduction technology. LUNGS: Patient still has a large right-sided pleural effusion. This has diminished in volume following yesterday's thoracentesis. This has allowed for partial reaeration of the right middle and lower lobes. There is still significant atelectasis in these two lobes. No left-sided effusion or pericardial effusion are present. There is a subtle miliary pattern of the lung parenchyma in the left lung base. There are ill-defined pleural metastasis with a plaque-like configuration in the right lung base There is focal fatty infiltration of the left lobe of the liver adjacent to the falciform ligament. The liver is otherwise normal in size and homogeneous. The spleen is normal size and homogeneous. There is mild hyperplasia of the left adrenal. This is unchanged from prior CT done on 08/13/18. The right adrenal is normal. The pancreas and both kidneys are normal. There are few small gallstones within the fundus of the gallbladder. The wall is not thickened or inflamed and the bile ducts are nondilated. The bowel pattern is normal. The uterus and ovaries have been resected. No adenopathy mass or ascites are present within the abdomen or pelvis. There is a large amount calcified plaque in the aorta and iliac arteries. The aorta is normal in caliber. Bone windows show no lytic or blastic metastasis. There is a mild anterior wedge compression fracture at T9. This is chronic. No bone metastasis are seen. There is degenerative disc disease at L5-S1 and chronic left sacroiliitis. Osteoarthritis is present in the right hip. 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
[2019-06-16] MEDS ORDERED: ALBUTEROL SULFATE 2.5 MG/3 ML NEBULIZER NEB SCH (13:00)
--- NOTE | 2019-06-16 13:31 | Discharge Summary ---
Medical - DS: Prov Patient information: Note initiated : 06/16/19 at 1:28 pm Service Date, if different from initiated Date: [] Patient: Anai Newton 54 y/o F admitted on 06/14/19 for Shortness of breath. Chief Complaint: [] Date of admission: 06/14/19 21:21 Discharge date: 06/16/19 Primary care physician: Vickie Marroquin Consults: 06/14/19 Consult to Physician [CONS] Stat Comment: Consulting Provider: Justo Khan Reason For Exam: Physician to Consult Medical - DS: Meds - Discharge Medications Prescriptions: traZODone HCL [Trazodone HCl] 50 mg PO QHS #60 tab Prescription Printed fentaNYL [Fentanyl] 1 patch TRANSDERMAL Q72H #5 each Prescription Printed Pregabalin [Lyrica] 200 mg PO TID #90 cap Prescription Printed oxyCODONE HCL [Oxycodone HCl] 10 tab PO Q4HP PRN #30 tab PRN Reason: severe pain (7-10) Prescription Printed oxyCODONE HCL [Oxycodone HCl] 5 mg PO Q4H PRN #30 tab PRN Reason: pain (scale score 4-6) Prescription Printed Active and Home Medications: Home Medications Aspirin [Lite Coat Aspirin] 325 mg PO DAILY 09/17/16 [History Confirmed 06/14/19 Last Taken 01/28/19] Acetaminophen 325 mg PO Q6HP PRN 04/25/19 [History Confirmed 06/14/19 Last Taken Unknown] Atorvastatin [Lipitor] 20 mg PO HS 04/25/19 [History Confirmed 06/14/19 Last Taken Unknown] pregabalin 200 mg capsule 200 mg PO TID #90 cap 05/12/19 [Rx Confirmed 06/14/19 Last Taken Unknown] trazodone 50 mg tablet 50 mg PO QHS #60 tab 05/20/19 [Rx Confirmed 06/14/19 Last Taken Unknown] fentanyl 25 mcg/hr transdermal patch 1 patch TRANSDERMA Q72H #5 each 05/25/19 [Rx Confirmed 06/14/19 Last Taken Unknown] Albuterol Sulfate [Ventolin] 2.5 mg NEB Q6HP PRN 06/14/19 [History Confirmed 06/14/19 Last Taken Unknown] Budesonide/Formoterol Fumarate [Symbicort 80-4.5 Mcg Inhaler] 2 puff INHALATION QAM 06/14/19 [History Confirmed 06/14/19 Last Taken Unknown] DULoxetine HCL [Cymbalta] 90 mg PO QAM 06/14/19 [History Confirmed 06/14/19 Last Taken Unknown] Fluticasone Propionate [Flonase] 1 spray INTRANASAL BIDP PRN 06/14/19 [History Confirmed 06/14/19 Last Taken Unknown] Lisinopril [Zestril] 20 mg PO QAM 06/14/19 [History Confirmed 06/14/19 Last Taken Unknown] Mirabegron [Myrbetriq] 25 mg PO QAM 06/14/19 [History Confirmed 06/14/19 Last Taken Unknown] guaiFENesin 10 ml PO Q4HP PRN 06/14/19 [History Confirmed 06/14/19 Last Taken Unknown] oxyCODONE HCL [Oxycodone HCl] 5 mg PO Q4H PRN 06/14/19 [History Confirmed 06/14/19 Last Taken Unknown] oxyCODONE HCL [Oxycodone HCl] 10 tab PO Q4HP PRN 06/14/19 [History Confirmed 06/14/19 Last Taken Unknown] [employer] Knee Scooter 1 each .ROUTE .MEDSUPPLY 06/15/19 [History Confirmed 06/15/19 Last Taken Unknown] Medical - DS: Hosp Hospital Course: 54-year-old female admitted with a progressively worsening shortness of breath and found to have large right-sided pleural effusion which was hemorrhagic upon tapping in the ER. She was admitted for suspected malignant pleural effusion and CT chest showing 1.2 cm apical mass and pleural thickening. Patient underwent thoracentesis therapeutic and diagnostic in the ER on the day of admission. But she continued having symptoms 06/15 -she continued having shortness of breath and chest x-ray showing large pleural effusion discussed with radiology and underwent ultrasound-guided thoracentesis and by CT-guided biopsy of the right apical mass. They could not identify the pleural thickening with ultrasound. Pathology and cytology pending. 06/16: Her hypoxia improved now she is on room air, strongly encourage her to use incentive spirometry. She underwent CT abdomen pelvis with contrast and CT head. CT head did not show any evidence of metastatic lesions. 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 Discussed with the patient's sister who came from [place]. Discussed in detail about the potential possibility of malignancy. This needs to be worked up with oncology. Plan is to discharge her back to the retirement today and follow-up with the oncology next week. Discussed with Dr. Veliz at [facility] and they will make an appointment for her next week. By the time we will have the cytology and pathology report. In the meantime if she developed shortness of breath or difficulty breathing or hypoxic start to come back to the ER. She can get the therapeutic thoracentesis by the radiology. she could also follow-up with her primary care provider and get the therapeutic thoracentesis as an outpatient Acute hypoxic respiratory failure Hemorrhagic pleural effusion -newly diagnosed History of shortness of breath and hypoxia-3 to 4 weeks History of COPD and continued smoking No history suggestive of heart failure No history of active COPD exacerbation Plan 1 L hemorrhagic pleural effusion was removed in the ER and removed 1.3 L on next day of admission and cytology was sentx2 CT-guided biopsy of the 1.2 cm mass in the right apex and pending biopsy and cytology CT abdomen pelvis with contrast showed: No evidence of metastasis within the abdomen or pelvis: Cholelithiasis, 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 Pleural metastasis in the right lower thorax Continue her home inhaler History of peripheral vascular disease status post BKA We will hold the aspirin as she is having hemorrhagic pleural effusion and planning for further tapping COPD-not in exacerbation Continue home inhalers Chronic pain She has a fentanyl patch 25 mcg She is also getting oxycodone every 4 over 5 mg which she has been taking at home We held the 10 mg oxycodone with a new respiratory failure Discharge diagnosis: Malignant pleural effusion Secondary discharge diagnosis: Acute hypoxic respiratory failure Time spent discussing smoking cessation with patient: more than 10 minutes - Time Spent with Patient Total time spent providing and/or coordinating discharge services: Greater than 30 minutes Medical - DS: Exam - Constitutional Vitals: Vital Signs Temp Pulse Pulse Resp BP BP Pulse Ox 06/16/19 12:00 98.8 F 105 H 22 125/68 93 06/16/19 08:00 104 H 95 06/16/19 07:33 99 H 20 06/16/19 07:28 97.8 F 102 H 22 138/76 96 06/16/19 06:50 99 H 20 06/16/19 04:01 144/79 06/16/19 04:00 103 H 141/72 96 06/16/19 03:54 98.5 F 98 H 20 144/79 96 06/15/19 23:43 94 H 146/65 93 06/15/19 23:38 98.5 F 98 H 20 146/65 98 06/15/19 23:13 97 H 20 06/15/19 19:30 94 H 20 06/15/19 19:02 97.8 F 98 H 22 144/79 98 06/15/19 17:16 116 H 18 92 06/15/19 17:01 17 139/69 06/15/19 16:18 95 H 15 95 06/15/19 16:01 98.1 F 114 H 21 107/72 94 06/15/19 15:06 136 H 24 H 93 06/15/19 15:01 119 H 19 133/76 98 06/15/19 15:00 120 H 16 06/15/19 14:09 19 06/15/19 14:06 94 06/15/19 14:01 116 H 21 145/73 95 06/15/19 13:33 110 H 18 149/71 97 Intake and Output 06/15/19 06/16/19 06/16/19 21:59 05:59 13:59 Intake Total 700 Output Total 225 350 650 Balance -225 -350 50 Intake: IV 50 Rocephin 2 gm In Dextrose 5% in 50 Water 50 ml @ 100 mls/hr IV Q24H [facility] Rx#:[id number] Oral 650 Output: Urine Catheter Amount 250 Void Amount 225 350 400 Other: Meal Lunch Percent of Meal Consumed Refused Urine Appearance Clear Urine Color Dark Yellow Bright Yellow Weight 157 lb 6.4 oz General appearance: cooperative, no acute distress - Head Head exam: Present: atraumatic, normal inspection, normocephalic - Eye Eye exam: Present: conjunctival injection, normal appearance - ENT ENT exam: Present: mucous membranes moist, normal exam - Respiratory Respiratory exam: Present: decreased breath sounds (Decreased breath sounds on right lung) - Cardiovascular Cardiovascular exam: Present: normal rate and rhythm. Absent: diastolic murmur, irregular rhythm, systolic murmur - GI/Abdominal GI/Abdominal exam: Present: normal bowel sounds, soft, distended. Absent: firm - Neurological Exam Neurological exam: Present: alert, oriented X3. Absent: motor sensory deficit Medical - DS: Data Labs on day of discharge: Labs from last 24 hours 06/16/19 06/16/19 03:40 03:40 WBC 10.2 RBC 5.32 H Hgb 13.3 Hct 41.7 MCV 78.4 L MCH 25.1 L MCHC 32.0 RDW 16.7 H Plt Count 481 H MPV 7.8 Total Counted 100 Seg Neutrophils % 78 Band Neutrophils % Not Reportable Lymphocytes % 12 L Monocytes % (Manual) 6 Eosinophils % (Manual) 3 Reactive Lymphocytes 1 Platelet Estimate Increased RBC Morphology Abnorm A Polychromasia 1+ A Hypochromasia 1+ A Anisocytosis 1+ A Microcytosis 1+ A Sodium 137 Potassium 3.9 Chloride 95 L Carbon Dioxide 30 Anion Gap 12.0 BUN 7 Creatinine 0.4 L GFR Calculation 116 Glucose 112 H Calcium 8.9 Magnesium 2.0 Total Bilirubin 0.2 AST 12 ALT 8 Alkaline Phosphatase 102 Total Protein 6.6 Albumin 3.0 L Globulin 3.6 Albumin/Globulin Ratio 0.8 L - Imaging and Cardiology CT scan - abdomen Status: pending Additional comments: Laboratory Results WBC 10.2 K/mcL (4.5-11.0) 06/16/19 03:40 RBC 5.32 M/mcL (4.00-5.20) H 06/16/19 03:40 Hgb 13.3 g/dL (12.0-15.0) 06/16/19 03:40 Hct 41.7 % (36.0-48.0) 06/16/19 03:40 MCV 78.4 fL (80.0-100.0) L 06/16/19 03:40 MCH 25.1 pg (26.0-34.0) L 06/16/19 03:40 MCHC 32.0 g/dL (31.0-36.0) 06/16/19 03:40 RDW 16.7 % (11.5-14.5) H 06/16/19 03:40 Plt Count 481 K/mcL (140-440) H 06/16/19 03:40 MPV 7.8 fL (7.4-10.4) 06/16/19 03:40 Gran % 73.9 % (38.0-78.0) 06/14/19 15:07 Lymph % (Auto) 17.5 % (15.5-49.0) 06/14/19 15:07 [place] % (Auto) 6.7 % (1.0-12.0) 06/14/19 15:07 Eos % (Auto) 1.2 % (0.0-7.0) 06/14/19 15:07 Baso % (Auto) 0.7 % (0.0-2.0) 06/14/19 15:07 Gran # 6.6 K/mcL (1.8-8.0) 06/14/19 15:07 Lymph # (Auto) 1.6 K/mcL (1.5-4.8) 06/14/19 15:07 [place] # (Auto) 0.6 K/mcL (0.1-0.9) 06/14/19 15:07 Eos # (Auto) 0.1 K/mcL (0.0-0.7) 06/14/19 15:07 Baso # (Auto) 0.1 K/mcL (0.0-0.3) 06/14/19 15:07 Total Counted 100 06/16/19 03:40 Seg Neutrophils % 78 % (38-78) 06/16/19 03:40 Band Neutrophils % Not Reportable 06/16/19 03:40 Lymphocytes % 12 % (15-49) L 06/16/19 03:40 Monocytes % (Manual) 6 % (1-12) 06/16/19 03:40 Eosinophils % (Manual) 3 % (0-7) 06/16/19 03:40 Reactive Lymphocytes 1 % (0-2) 06/16/19 03:40 Platelet Estimate Increased (NORMAL) 06/16/19 03:40 RBC Morphology Abnorm (NORMAL) A 06/16/19 03:40 Polychromasia 1+ (NONE SEEN) A 06/16/19 03:40 Hypochromasia 1+ (NONE SEEN) A 06/16/19 03:40 Anisocytosis 1+ (NONE SEEN) A 06/16/19 03:40 Microcytosis 1+ (NONE SEEN) A 06/16/19 03:40 POC PT 13.8 sec (11.9-14.5) 06/15/19 09:47 POC INR 1.2 (0.9-1.2) 06/15/19 09:47 VBG Lactic Acid 1.0 mmol/L (0.5-2.0) 06/14/19 15:07 Sodium 137 mmol/L (133-145) 06/16/19 03:40 Potassium 3.9 mmol/L (3.3-5.1) 06/16/19 03:40 Chloride 95 mmol/L (96-108) L 06/16/19 03:40 Carbon Dioxide 30 mmol/L (22-30) 06/16/19 03:40 Anion Gap 12.0 (8-16) 06/16/19 03:40 BUN 7 mg/dl (6-20) 06/16/19 03:40 Creatinine 0.4 mg/dl (0.6-1.1) L 06/16/19 03:40 GFR Calculation 116 06/16/19 03:40 Glucose 112 mg/dL (70-105) H 06/16/19 03:40 Calcium 8.9 mg/dl (8.6-10.4) 06/16/19 03:40 Magnesium 2.0 mg/dL (1.6-2.5) 06/16/19 03:40 Total Bilirubin 0.2 mg/dL (0.0-1.0) 06/16/19 03:40 AST 12 U/l (0-37) 06/16/19 03:40 ALT 8 U/l (0-40) 06/16/19 03:40 Alkaline Phosphatase 102 U/L (39-117) 06/16/19 03:40 Troponin T < 0.01 ng/ml (0-0.03) 06/14/19 15:00 NT-Pro-B Natriuret Pep 207.6 pg/ml (0-125) H 06/14/19 15:07 Total Protein 6.6 gm/dL (5.9-8.4) 06/16/19 03:40 Albumin 3.0 gm/dL (3.2-5.2) L 06/16/19 03:40 Globulin 3.6 gm/dL (2.2-3.7) 06/16/19 03:40 Albumin/Globulin Ratio 0.8 (1.0-2.3) L 06/16/19 03:40 Urine Color Yellow 06/14/19 15:35 Urine Appearance Clear 06/14/19 15:35 Urine pH 7.0 (5.0-9.0) 06/14/19 15:35 Ur Specific [place] 1.010 (1.000-1.035) 06/14/19 15:35 Urine Protein Neg mg/dL (NEG) 06/14/19 15:35 Urine Glucose (UA) Negative mg/dL (NEG) 06/14/19 15:35 Urine Ketones 20 mg/dL (NEG) A 06/14/19 15:35 Urine Occult Blood 0.2 mg/dL (<0.03) A 06/14/19 15:35 Urine Nitrate Pos (NEG) A 06/14/19 15:35 Urine Bilirubin Neg mg/dL (NEG) 06/14/19 15:35 Urine Urobilinogen Neg mg/dL (NEG) 06/14/19 15:35 Ur Leukocyte Esterase 75 /uL (NEG) A 06/14/19 15:35 Urine RBC 2 /hpf (0-1) H 06/14/19 15:35 Urine WBC 7 /hpf (0-4) H 06/14/19 15:35 Ur Squamous Epith Cells 1 /hpf (0-4) 06/14/19 15:35 Urine Bacteria Many /hpf (0) A 06/14/19 15:35 Urine Mucus Few /hpf (0) 06/14/19 15:35 Ur Culture Indicated? Yes 06/14/19 15:35 Medical - DS: A/P - Patient/Caregiver Discharge Instructions Activity: as per physical therapy, increase activity as tolerated Diet: Regular Diet Prescriptions: traZODone HCL [Trazodone HCl] 50 mg PO QHS #60 tab Prescription Printed fentaNYL [Fentanyl] 1 patch TRANSDERMAL Q72H #5 each Prescription Printed Pregabalin [Lyrica] 200 mg PO TID #90 cap Prescription Printed oxyCODONE HCL [Oxycodone HCl] 10 tab PO Q4HP PRN #30 tab PRN Reason: severe pain (7-10) Prescription Printed oxyCODONE HCL [Oxycodone HCl] 5 mg PO Q4H PRN #30 tab PRN Reason: pain (scale score 4-6) Prescription Printed - Follow up Plan Follow up with: Indiana Veliz MD [Physician] - (A referral has been sent to Dr. Veliz, the [facility] to [facility] you.) Vickie Marroquin ARNP [Primary Care Provider] - Disposition: Xfer Other Prognosis: Fair Rehab Potential: Fair Medical - DS: Qual - VTE Deep Vein Thrombosis/Pulmonary Embolism Present on Admission: No
--- NOTE | 2019-06-17 13:05 | Surgical Pathology Report ---
HISTOLOGY SPECIMEN MICROSCOPIC DIAGNOSIS LUNG, RIGHT APEX MASS, NEEDLE CORE BIOPSY: -- SMALL CELL CARCINOMA; SEE COMMENT. (DMT:jeol) COMMENT: Sections show lung parenchyma effaced by nests and sheets of small cells with round to angulated nuclei, speckled chromatin, absent nucleoli and decreased amounts of cytoplasm. Prominent nuclear molding and foci of necrosis are seen. No well formed glands or keratinization are identified. Immunohistochemical studies are performed and neoplastic cells are positive for Pancytokeratin Plus, CK7, TTF-1, CD56, synaptophysin and chromogranin. Overall, the morphologic and immunophenotypic features are compatible with classification as a small cell carcinoma. MICROSCOPIC DESCRIPTION Sections contain multiple needle core biopsies of lung parenchyma effaced by sheets and nests of small blue cells with round to angulated nuclei, speckled chromatin, absent nucleoli and decreased amounts of cytoplasm. Prominent nuclear molding is seen without well formed glands or keratinization. Numerous atypical mitoses, necrotic single cells and small collections of necrotic cells are also identified. The following immunohistochemical studies are performed: Cell Population: Neoplastic cells. Pancytokeratin Plus: Uniformly positive, dot-like pattern. CK7: Uniformly positive. TTF-1: Uniformly positive. CD56: Variably positive. Synaptophysin Uniformly positive. Chromogranin: Focally positive. CK20: Negative. CK5/6, p63: Negative. Napsin A: Negative. CDX2: Negative. GATA3: Negative. Interpretation: Compatible with small cell carcinoma. (DMT:joel) Some of the tests reported here may not have been cleared or approved by the U.[place]. Food and Drug Administration (FDA). However, the FDA has determined that such clearance or approval is not necessary. Pursuant to the requirements of CLIA, this laboratory has established and verified the accuracy and precision of all tests, and additional information about these tests is available upon request. All technical controls are adequate. CLINICAL HISTORY Shortness of breath. GROSS DESCRIPTION Received in formalin labeled right lung, are three moulton-brown cores of tissue from 1.5 to 1.8 cm in length and up to 0.1 cm in diameter. The largest is bisected, entirely submitted - two cassettes. (SCB:joel) Electronically Signed by: Charles Crabtree M.D.
--- NOTE | 2019-06-17 13:15 | Non-GYN Cytology Report ---
NON VARITYPIST SPECIMEN NG DX CATEGORY Malignant MICROSCOPIC DIAGNOSIS PLEURAL FLUID, RIGHT, THORACENTESIS: -- MALIGNANT CELLS PRESENT, DERIVED FROM SMALL CELL CARCINOMA; SEE COMMENT. (DMT:joel) COMMENT: The case is reviewed along with the patient's concurrent lung biopsy ([id number]) from a right apical lung mass. Both are involved by a morphologically similar malignancy. Morphologic features in conjunction with immunohistochemical studies performed on the biopsy characterize this malignancy as a small cell carcinoma. Please see biopsy report for additional details. MICROSCOPIC DESCRIPTION A thinprep monolayer slide, Diff Quik stained cytospin slide and a cell block slide are reviewed. Each contains scattered clusters and individual malignant epithelioid cells with round to angulated nuclei, speckled to smudged chromatin, absent nucleoli and decreased amounts of cytoplasm. Nuclear molding and few necrotic single cells are seen. No well formed glands or keratinization are identified. The background has blood with a few lymphocytes, macrophages and rare neutrophils. (DMT:joel) CLINICAL HISTORY Right pleural effusion. EXTERNAL COMMENT ~1000 mL fresh cloudy red-brown fluid: 1 thinprep, 1 cell block Electronically Signed by: Charles Crabtree M.D.
--- NOTE | 2019-06-17 13:20 | Non-GYN Cytology Report ---
NON COVERING MACHINE OPERATOR SPECIMEN NG DX CATEGORY Malignant MICROSCOPIC DIAGNOSIS PLEURAL FLUID, RIGHT, THORACENTESIS: -- MALIGNANT CELLS PRESENT, DERIVED FROM SMALL CELL CARCINOMA; SEE COMMENT. (DMT:joel) COMMENT: The patient's recent diagnosis of small cell carcinoma involving a right apical lung mass ([id number]; 06/14/2019) and pleural fluid ([id number]; 06/14/2019) is noted. The current case has clusters of malignant cells that are morphologically similar to those seen in the patient's prior specimens. MICROSCOPIC DESCRIPTION A thinprep monolayer slide, stained cytospin slide and a cell block slide are reviewed. Each contains scattered clusters of malignant epithelial cells with small round to angulated nuclei, speckled chromatin, absent nucleoli and scant cytoplasm. The cells show prominent nuclear molding and occasional degenerated/necrotic single cells. No well formed glands or keratinization are identified. The background has proteinaceous material, numerous blood cells, lymphocytes, neutrophils, macrophages and rare reactive mesothelial cells. (DMT:joel) CLINICAL HISTORY Right pleural effusion. EXTERNAL COMMENT ~1000 mL fresh cloudy red-brown fluid: 1 thinprep, 1 Ash Giemsa, 1 cell block Electronically Signed by: Charles Crabtree M.D.
== END 2019-06-16 14:35 | disposition other institution (70) | DRG 180 ==
LOC: ED 14:48 → ICU 21:12
PROVIDERS: ADMIT Internal Medicine; ATTEND Internal Medicine